=== PATIENT | male | born 1970 | race Caucasian/White ===

== ENCOUNTER 2018-03-08 22:14 | Emergency (ER) | payer SELFPAY ==
--- NOTE | 2018-03-08 23:12 | ED ---
Psych HPI - General Source: patient, police, RN notes reviewed Mode of arrival: ambulatory - History of Present Illness MD Complaint: suicidal ideation, feels depressed <Azam Posey - Last Filed: 03/09/18 00:54> <Elkin Quezada - Last Filed: 03/09/18 06:58> - General Chief Complaint: Psychiatric Symptoms Stated Complaint: Petition Time Seen by Provider: 03/08/18 22:14 - History of Present Illness Initial Comments: This a 48-year-old male with a history depression who was brought in by police and petitioned after voicing suicidal thoughts and ideation. No definite plan he does admit to drinking alcohol he has long history of drinking alcohol. He also has a long history depression. He denies any drug use. No other significant complaints at this time. (Azam Posey) - Related Data Home Medications Medication Instructions Recorded Confirmed No Known Home Medications 03/08/18 03/08/18 Allergies Allergy/AdvReac Type Severity Reaction Status Date / Time No Known Allergies Allergy Verified 03/08/18 23:33 Review of Systems ROS Other: All systems not noted in ROS Statement are negative. <Azam Posey - Last Filed: 03/09/18 00:54> ROS Other: All systems not noted in ROS Statement are negative. <Elkin Quezada - Last Filed: 03/09/18 06:58> ROS Statement: Those systems with pertinent positive or pertinent negative responses have been documented in the HPI. Past Medical History Past Medical History: No Reported History History of Any Multi-Drug Resistant Organisms: None Reported Past Surgical History: Hernia Repair Past Psychological History: No Psychological Hx Reported Smoking Status: Current every day smoker Past Alcohol Use History: Daily, Heavy Past Drug Use History: None Reported <Azam Posey - Last Filed: 03/09/18 00:54> General Exam Limitations: no limitations General appearance: alert Head exam: Present: atraumatic, normocephalic, normal inspection Eye exam: Present: normal appearance, PERRL, EOMI. Absent: scleral icterus, conjunctival injection, periorbital swelling ENT exam: Present: normal exam, mucous membranes moist Neck exam: Present: normal inspection. Absent: tenderness, meningismus, lymphadenopathy Respiratory exam: Present: normal lung sounds bilaterally. Absent: respiratory distress, wheezes, rales, rhonchi, stridor Cardiovascular Exam: Present: regular rate, normal rhythm, normal heart sounds. Absent: systolic murmur, diastolic murmur, rubs, gallop, clicks GI/Abdominal exam: Present: soft, normal bowel sounds. Absent: distended, tenderness, guarding, rebound, rigid Extremities exam: Present: normal inspection, full ROM, normal capillary refill. Absent: tenderness, pedal edema, joint swelling, calf tenderness Back exam: Present: normal inspection Neurological exam: Present: alert, oriented X3, CN II-XII intact Psychiatric exam: Present: depressed, flat affect, suicidal ideation Skin exam: Present: warm, dry, intact, normal color. Absent: rash <Azam Posey - Last Filed: 03/09/18 00:54> <Elkin Quezada - Last Filed: 03/09/18 06:58> - General Exam Comments Initial Comments: This is a well-developed well-nourished awake alert oriented 1 male he does have the smell of alcohol conjoiners on his breath (Azam Posey) Course <Azam Posey - Last Filed: 03/09/18 00:54> <Elkin Quezada - Last Filed: 03/09/18 06:58> Vital Signs 03/08/18 03/09/18 22:15 02:21 Temperature 97.4 F L Pulse Rate 78 Respiratory 18 19 Rate Blood Pressure 119/82 O2 Sat by Pulse 98 Oximetry - Reevaluation(s) Reevaluation #1: 03/09/18 01:00 The patient is resting comfortably pending sobriety for evaluation by psychiatry. Patient's care is endorsed to Dr. Quezada at our shift change (Azam Posey) Disposition <Azam Posey - Last Filed: 03/09/18 00:54> Is patient prescribed a controlled substance at d/c from ED?: No <Elkin Quezada - Last Filed: 03/09/18 06:58> Clinical Impression: Alcohol intoxication Disposition: HOME SELF-CARE Condition: Fair Referrals: Nonstaff,Physician [Primary Care Provider] - 1-2 days
[2018-03-09 02:22] VITALS: RESP 19
[2018-03-09 07:16] VITALS: BP 120/87; PULSE 85; TEMP 98.3
== END 2018-03-09 07:07 | disposition home or self-care (01) ==
LOC: EC 22:14
DX: F10.129 Alcohol abuse with intoxication, unspecified (principal); F32.9 Major depressive disorder, single episode, unspecified; R45.851 Suicidal ideations; F17.200 Nicotine dependence, unspecified, uncomplicated
CPT/HCPCS: 82075; 99285